=== PATIENT | female | born 1985 | race Caucasian/White ===

== ENCOUNTER → 2020-04-18 09:47 | Outpatient (CLI) | payer BC, SELFPAY ==
--- NOTE | ~2020-04-18 | XR_ITS ---
EXAMINATION: XR shoulder RT min 2V EXAM DATE: 04/18/2020 10:05 INDICATION: M25.511 - Pain in right shoulder. TECHNIQUE: The following right shoulder projections obtained: frontal projection with internal rotati on, frontal projection with external rotation, Grashey, and axillary (4+ views). There is no prior s tudy for comparison. FINDINGS: No evidence of right shoulder rotator cuff calcific tendinosis. Unremarkable right gleno humeral and acromioclavicular joints. There are no acute fractures or dislocations identified. There is no subcutaneous gas. The soft tissue is unremarkable. There are no radiopaque foreign bodies. IMPRESSION: 1. Unremarkable XR shoulder RT min 2V exam. Reviewed, dictated and finalized at location B. [facility]
== END ==
PROVIDERS: PCP Family Medicine; Visit Provider Physician Assistant
DX: M25.511 Pain in right shoulder (principal)
CPT/HCPCS: 73030